=== PATIENT | female | born 1975 | race African-American/Black ===

== ENCOUNTER 2018-06-30 05:23 | Day surgery (SDC) ==
--- NOTE | 2018-06-19 10:27 | EKG Report ---
Test Performed on : 06/19/2018 10:01:05 AM Test Reason : PAT Blood Pressure : / mmHG Vent. Rate : 085 BPM Atrial Rate : 085 BPM P-R Int : 122 ms QRS Dur : 076 ms QT Int : 372 ms P-R-T Axes : 033 014 042 degrees QTc Int : 442 ms Sinus rhythm. with occasional premature ventricular complexes. Otherwise normal ECG When compared with ECG of 09-DEC-2017 11:46, premature ventricular complexes. are now present Unconfirmed Result
[2018-06-19 10:35] LABS: URINE SOURCE CLEAN CATCH
[2018-06-19 10:54] LABS: BASO# 0.01 X1000 (0.0-0.2); BASO% 0.2 % (0.0-0.8); EOS% 4.2 % (0.0-10.0); HEMATOCRIT 38.1 % (37.0-47.0); HEMOGLOBIN 12.5 g/dL (12.0-16.0); LYMPH# 1.49 X1000 (1.2-3.4); LYMPH% 31.1 % (20.5-51.1); MCH 25.4 PG (27-31); MCHC 32.8 g/dL (33-37); MCV 77.3 FL (81-99); MONO# 0.28 X1000 (0.11-0.59); MONO% 5.8 % (1.7-9.3); MPV 10.8 FL (7.4-10.4); NEUT# 2.81 X1000 (1.4-6.5); NEUT% 58.7 % (42.2-75.2); PLT 379 X1000 (130-400); RBC 4.93 XMIL (4.2-5.4); RDW 14.2 % (11.5-14.5); WBC 4.79 X1000 (4.8-10.8)
[2018-06-19 10:55] LABS: BILIRUBIN URINE NEGATIVE (NEGATIVE); BLOOD URINE NEGATIVE (NEGATIVE); COLOR YELLOW; GLUCOSE URINE NEGATIVE (NEGATIVE); KETONE URINE NEGATIVE (NEGATIVE); LEUKOCYTES URINE LARGE (NEGATIVE); NITRITE URINE NEGATIVE (NEGATIVE); PROTEIN URINE NEGATIVE (NEGATIVE); TURBIDITY URINE CLEAR (CLEAR); UROBILINOGEN URINE NORMAL (NORMAL)
[2018-06-19 10:56] LABS: UR EPITHELIAL CELLS <10 /HPF (<10); URINE BACTERIA 1+ /HPF; URINE RBC <10 /HPF (<10); URINE WBC 20-40 /HPF (<10)
[2018-06-19 11:04] LABS: INR 0.87; PROTIME 12.5 Seconds (11.0-16.0)
[2018-06-19 11:05] LABS: PTT 30.1 Seconds (22.3-41.8)
[2018-06-19 12:08] LABS: AGAP 17; BUN 8 mg/dL (8-22); CALCIUM 9.4 mg/dL (8.8-10.2); CHLORIDE 98 mmol/L (98-107); COSMO 273; CREATININE 0.8 mg/dL (0.5-0.9); ESTIMATED GFR > 60; GLUCOSE 81 mg/dL (70-104); POTASSIUM 4.1 mmol/L (3.5-5.1); SODIUM 138 mmol/L (136-145); TCO2 23 mmol/L (25-35)
[2018-06-19 12:55] LABS: HEMOGLOBIN A1C 5.5 % (4.8-6.0)
[2018-06-30] MEDS ORDERED: PEPCID ONE (06:25)
[2018-06-30] MEDS ORDERED: COLACE ONE (06:25)
[2018-06-30] MEDS ORDERED: REGLAN ONE (06:25)
[2018-06-30] MEDS ORDERED: CELEBREX ONE (06:26)
[2018-06-30] MEDS ORDERED: KEFZOL 2 GM/D5W 2 GM/50 ML IVPB ONE (06:26)
[2018-06-30] MEDS ORDERED: LR 1,000 ML ONE (06:26)
[2018-06-30] MEDS ORDERED: LYRICA ONE (06:26)
[2018-06-30] MEDS ORDERED: DIPRIVAN 1% ONE (06:32)
[2018-06-30] MEDS ORDERED: FENTANYL ONE ×2 (06:50→07:57)
[2018-06-30] MEDS ORDERED: XYLOCAINE-MPF 2% ONE (06:50)
[2018-06-30] MEDS ORDERED: VERSED ONE (06:51)
[2018-06-30] MEDS ORDERED: CYKLOKAPRON 1,000 MG/NS 1,000 MG/100 ML IVPB ONE ×2 (06:56→07:00)
[2018-06-30] MEDS ORDERED: DURAMORPH ONE (06:56)
[2018-06-30] MEDS ORDERED: TORADOL ONE (06:56)
[2018-06-30] MEDS ORDERED: MARCAINE 0.25% PF ONE (06:56)
[2018-06-30] MEDS ORDERED: VANCOMYCIN ONE (06:56)
[2018-06-30] MEDS ORDERED: SODIUM CHLORIDE 0.9% ONE (06:56)
[2018-06-30] MEDS ORDERED: EXPAREL 1.3% ONE (06:57)
[2018-06-30] MEDS ORDERED: NEOSPORIN G.U. IRRIGANT ONE (07:00)
[2018-06-30] MEDS ORDERED: NEO-SYNEPHRINE ONE (07:51)
[2018-06-30] MEDS ORDERED: DECADRON ONE (07:51)
[2018-06-30] MEDS ORDERED: ZOFRAN ONE (07:51)
[2018-06-30] MEDS ORDERED: OFIRMEV 1000 MG/ISOTONIC SOLN 1,000 MG/100 ML BOTTLE ONE (07:51)
[2018-06-30 07:58] LABS: URINE SOURCE CATH
[2018-06-30 08:01] LABS: BILIRUBIN URINE NEGATIVE (NEGATIVE); BLOOD URINE SMALL (NEGATIVE); COLOR STRAW; GLUCOSE URINE NEGATIVE (NEGATIVE); KETONE URINE NEGATIVE (NEGATIVE); LEUKOCYTES URINE NEGATIVE (NEGATIVE); NITRITE URINE NEGATIVE (NEGATIVE); PH URINE 5.5; PROTEIN URINE NEGATIVE (NEGATIVE); TURBIDITY URINE CLEAR (CLEAR); UROBILINOGEN URINE NORMAL (NORMAL)
[2018-06-30 08:03] LABS: UR EPITHELIAL CELLS <10 /HPF (<10); URINE BACTERIA NEGATIVE /HPF; URINE RBC <10 /HPF (<10); URINE WBC <10 /HPF (<10)
[2018-06-30] MEDS ORDERED: NS 1,000 ML ONE (09:32)
[2018-06-30] MEDS ORDERED: OXY IR PO PRN (10:23)
[2018-06-30] MEDS ORDERED: ZOFRAN IV PRN (10:23)
[2018-06-30] MEDS ORDERED: MORPHINE IV PRN (10:23)
[2018-06-30] MEDS ORDERED: MILK OF MAGNESIA PO PRN (10:23)
[2018-06-30] MEDS ORDERED: FLEXERIL PO PRN (10:23)
[2018-06-30] MEDS ORDERED: VITAMIN D PO SCH (11:00)
--- NOTE | 2018-06-30 12:00 | OPERATIVE NOTE ---
PROCEDURE DATE: 06/30/2018 PREOPERATIVE DIAGNOSIS: Left knee degenerative joint disease. POSTOPERATIVE DIAGNOSIS: Left knee degenerative joint disease. PROCEDURE PERFORMED: Left total knee arthroplasty using [facility] size 4 femoral component, size 4 tibial base plate, a 12 mm articular insert, and a 29 mm patellar component. ANESTHESIA: General SURGEON: Dominick Pitt MD PLIER WORKER: Coby Jarvis PA-C, who was present throughout the case. Her assistance was critical for exposure, placement of the implants, and wound closure. Her assistance greatly reduced anesthesia and operative time and improved the efficiency of the OR. BLOOD LOSS: Minimal. TIME OF TOURNIQUET: Approximately an hour and a half. DESCRIPTION OF PROCEDURE: The patient was brought to the operative suite and placed in supine position. After successful administration of general anesthesia, a well-padded tourniquet was placed on the left proximal thigh. Left lower extremity was prepped and draped in usual sterile fashion. Leg was exsanguinated. Tourniquet insufflated to 350 torr. A longitudinal incision made beginning in the superior pole of the patella and extended distally to tibia tuberosity. A medial arthrotomy was then made, and then the medial capsule was elevated off the medial tibial plateau. ACL, PCL, medial meniscus, and lateral meniscus were excised. A drill was entered in the center of distal femur. Intramedullary guide was placed. Distal cutting block was pinned in place. Distal cut was made with oscillating saw. Attention was then directed to the tibia. A drill was then inserted in the tibia. Intramedullary guide was placed. Alignment was checked with drop dk referencing off the anterior cortex tibia, and the second ray of the foot and taking 4 mm off the low side of the tibia which in this case was medially. The tibial cutting block was pinned into place. The articular surface of the tibial plateau was removed with oscillating saw. The extension gap was measured to 12 mm. Therefore, the flexion gap was set to 21 mm to allow for 9 mm of the posterior condyle of the femoral component. Once this was set, the femur was measured and found to be a size 4. Size [address] guide [address]. Anterior cuts, chamfer cuts, and posterior condylar cuts were made with oscillating saw. The box cutting block was pinned in place. Box cut was made a box osteotome and oscillating saw. Posterior condyle osteophytes removed with the curved osteotome and rongeur. Attention was then directed to the tibia. A drill was entered into the tibia and sized to size 4. Size 4 guide was used for the fin punch. The tibial trial and femoral trial and 12 mm articular insert were placed taken through range of motion, and found to have excellent alignment and balancing range of motion. Attention was directed to the patella. Then 9 mm of the articular surface of patella removed with oscillating saw. Patella sized to a size 29. A size 29 guide was used to drill peg holes, facet was chamfered 30 to 45 degrees. Patella trial was placed and taken through range of motion, and found to have excellent patella tracking. All trials were then removed. The knee was copiously irrigated and dried, being certain all bone and debris was removed. The tibial component, femoral component, and patellar component were cemented in place. Excess cement being removed with a [place]. Once the cement hardened, excess cement was again removed with osteotome. Knee was again copiously irrigated and dried, being certain all bone and cement debris was removed. The trial articular insert was removed. The knee was copiously infiltrated with Exparel, including posterior capsule, anterior capsule, medial and lateral collateral ligaments, and anterior musculature subcutaneous tissue. The tourniquet was deflated and hemostasis was obtained with electrocautery. The definitive articular insert was locked into place. The knee was again copiously irrigated with normal saline containing irrigant and Vashe irrigation. A drain was placed exiting superior laterally and buried in the lateral gutter. The medial arthrotomy was then closed with a 0 V-Loc suture. The skin edge was approximated with 2-0 Vicryl. Skin was closed with Prineo. A sterile dressing was applied. The patient tolerated the procedure well without complication. At the end of the procedure, all counts were correct x2. The patient was transferred to recovery room in stable condition. cc: Dominick Pitt MD [facility]
[2018-06-30] MEDS: LYRICA PO SCH ×2 (13:30→21:21)
[2018-06-30] MEDS: ASPIRIN PO SCH (13:31)
[2018-06-30] MEDS: CELEBREX PO SCH ×2 (13:32→21:20)
[2018-06-30] MEDS: COLACE PO SCH ×2 (13:33→21:22)
[2018-06-30] MEDS: OXY IR PO PRN ×2 (13:51→23:32)
[2018-06-30] MEDS: KLOR-CON PO SCH ×2 (13:52→21:22)
[2018-06-30] MEDS: ESTRACE PO SCH (13:52)
[2018-06-30] MEDS: ZYLOPRIM PO SCH (13:53)
[2018-06-30] MEDS: PRILOSEC PO SCH (13:53)
[2018-06-30] MEDS: NORVASC PO SCH (13:53)
[2018-06-30] MEDS: NS 1,000 ML IV SCH ×2 (13:55→21:18)
[2018-06-30] MEDS: PRINZIDE 10/12.5MG PO SCH (14:01)
[2018-06-30] MEDS: KEFZOL 2 GM/D5W 2 GM/50 ML IVPB IV SCH ×2 (16:05→23:32)
[2018-06-30] MEDS: TYLENOL PO SCH ×2 (16:05→21:19)
[2018-06-30] MEDS: ULTRAM PO SCH ×2 (16:06→21:19)
[2018-06-30] MEDS ORDERED: XANAX PO SCH (21:00)
[2018-06-30] MEDS: PERIDEX MT SCH (21:18)
[2018-07-01] MEDS: NS 1,000 ML IV SCH (01:54)
[2018-07-01] MEDS: ULTRAM PO SCH ×2 (03:00→09:04)
[2018-07-01] MEDS: OXY IR PO PRN (04:32)
[2018-07-01] MEDS: TYLENOL PO SCH ×2 (04:51→09:04)
[2018-07-01 06:01] LABS: HEMATOCRIT 28.4 % (37.0-47.0); HEMOGLOBIN 9.4 g/dL (12.0-16.0)
[2018-07-01 06:13] LABS: AGAP 8; BUN 12 mg/dL (8-22); CALCIUM 8.1 mg/dL (8.8-10.2); CHLORIDE 96 mmol/L (98-107); COSMO 261; CREATININE 0.7 mg/dL (0.5-0.9); ESTIMATED GFR > 60; GLUCOSE 102 mg/dL (70-104); POTASSIUM 3.6 mmol/L (3.5-5.1); SODIUM 130 mmol/L (136-145); TCO2 26 mmol/L (25-35)
[2018-07-01] MEDS: PRILOSEC PO SCH (07:06)
[2018-07-01 07:24] VITALS: BP 102/68
[2018-07-01] MEDS ORDERED: DECADRON IV ONE (09:00)
[2018-07-01] MEDS: COLACE PO SCH (09:03)
[2018-07-01] MEDS: ASPIRIN PO SCH (09:03)
[2018-07-01] MEDS: ESTRACE PO SCH (09:05)
[2018-07-01] MEDS: ZYLOPRIM PO SCH (09:05)
[2018-07-01] MEDS: LYRICA PO SCH (09:05)
[2018-07-01] MEDS: PRINZIDE 10/12.5MG PO SCH (09:05)
[2018-07-01] MEDS: NORVASC PO SCH (09:05)
[2018-07-01] MEDS: PERIDEX MT SCH (09:06)
[2018-07-01] MEDS: CELEBREX PO SCH (09:06)
[2018-07-01] MEDS: KLOR-CON PO SCH (09:09)
--- NOTE | 2018-07-02 08:36 | DISCHARGE SUMMARY ---
ADMISSION DATE: 06/30/2018 DISCHARGE DATE: 07/01/2018 DISCHARGE DIAGNOSIS: Left knee degenerative joint disease status post left total knee arthroplasty. DISCHARGE MEDICATIONS: See discharge medication list. DISPOSITION: The patient is discharged home with home health. DISCHARGE INSTRUCTIONS: Instructions for total knee arthroplasty protocol and instructed to return to see Dr. Pitt next . HOSPITAL COURSE: On the day of admission, patient underwent a left total knee arthroplasty. Her postoperative course was unremarkable. At discharge, she is afebrile, tolerating regular diet, and ambulating well with physical therapy. Yesterday, she walked 120 feet. At discharge, her hemoglobin is 9.4 and her hematocrit is 28.4. She has had 10 mL of drainage from her Hemovac drain in the last 8 hours, which was discontinued. Her left knee dressing is clean, dry, and intact. Her left leg is neurovascularly intact. She is discharged home in stable condition with instructions to follow up as described above. Dictated by LOGAN Sevilla for Dominick Pitt MD cc: LOGAN Sevilla MD
== END 2018-07-01 13:07 | disposition home or self-care (01) ==
LOC: 4N 05:23 → OR 05:23
PROVIDERS: ATTEND Orthopaedic Surgery
CPT/HCPCS: 80048; 81001; 82040; 83036; 85014; 85018; 85025; 85610; 85730; 86850; 86900; 86901; 88305; 88311; 93005; 93010; 94761; 94799; 97110; 97116; 97162; A9270; C9290; J0131; J0690; J1100; J1885; J2250; J2274; J2275; J2370; J2405; J3010; J3370; J7030; J7120; Q9974; S0020